=== PATIENT | female | born 1955 | race Two or more races ===

== ENCOUNTER 2023-09-14 17:45 | Inpatient (IN) | payer MEDICAID, OTHER ==
[~2023-09-14] VITALS: Ht 162.6 cm; Wt 52.9 kg
[2023-09-14] MEDS: SODIUM CHLORIDE 0.9% 1,000 ML IV ONE (19:33)
[2023-09-14] MEDS: MORPHINE SULFATE 4 MG/ML SYR/VIAL IV ONE (19:48)
[2023-09-14 19:58] LABS: Hematocrit 36.2 % (36.0-46.0); Hemoglobin 11.6 g/dL (12.2-16.2); Mean Corpuscular Hemoglobin 27.1 pg (28.0-32.0); Mean Corpuscular Hgb Conc. 32.1 g/dL (32.0-36.0); Mean Corpuscular Volume 84.5 fL (80.0-100.0); Red Blood Cells 4.28 10^6/uL (4.0-5.20); White Blood Cell 21.7 10^3/uL (4.4-10.8)
[2023-09-14 20:04] LABS: Basophils % (manual) 0 (0.0-2.0); Blast Cells 0; Eosinophils % (manual) 0 (0-7); Metamyelocytes % 0; Myelocytes % 0; Promyelocytes % 0; Reactive Lymphocytes 0
[2023-09-14] MEDS: AZITHROMYCIN 250 MG TAB PO ONE (20:43)
[2023-09-14] MEDS: cefTRIAXone 1GM/50ML D5W 50 ML IV ONE (20:44)
[2023-09-14] MEDS: MORPHINE SULFATE INJ 2 MG/ml SYRG IV ONE (20:47)
[2023-09-14 21:08] LABS: Chloride 103 mmol/L (98-107); Potassium 3.4 mmol/L (3.5-5.1); Sodium 135 mmol/L (136-145)
[2023-09-14 21:09] LABS: Anion Gap 8 (5-15); Calcium 8.5 mg/dL (8.5-10.1); Carbon Dioxide 24 mmol/L (20-30)
[2023-09-14 21:14] LABS: BUN/Creatinine Ratio 14.6 (10.0-20.0); Blood Urea Nitrogen 30 mg/dL (9-23); Glucose 165 mg/dL (74-106)
[2023-09-14 21:32] LABS: Band Neutrophils % (manual) 3; Lymphocytes % (manual) 5 (10.0-50.0); Monocytes % (manual) 6 (0-12); Platelet Estimate Adequate
[2023-09-14] MEDS ORDERED: NITROGLYCERIN 0.4 MG SL TAB SL PRN (22:00)
[2023-09-14] MEDS: SODIUM CHLORIDE 0.9% 1,000 ML IV SCH (22:39)
[2023-09-14 23:15] VITALS: PULSE 83; RESP 20; O2SAT 93
[2023-09-14 23:24] VITALS: O2SAT 93
[2023-09-14] MEDS: IPRATROPIUM BROM 0.5 MG/2.5ML INH SOL NEB SCH (23:24)
[2023-09-14] MEDS: ALBUTEROL SULF 2.5 MG/0.5ML(0.5%) NEB SOLN NEB SCH (23:24)
[2023-09-14 23:30] VITALS: PULSE 91; RESP 11; O2SAT 94
[2023-09-14 23:35] VITALS: PULSE 83; RESP 20; O2SAT 95
[2023-09-14 23:39] VITALS: PULSE 83; O2SAT 93
[2023-09-15] VITALS (24 sets, daily range): BP systolic 103–127; BP diastolic 54–63; PULSE 72–104; RESP 14–20; TEMP 97.4–98.8; O2SAT 90–98
[2023-09-15 00:30] LABS: COVID19 ANTIGEN SOFIA FIA NEGATIVE (NEGATIVE)
[2023-09-15 00:31] LABS: Rapid Influenza A Negative (Negative); Rapid Influenza B Negative (Negative)
[2023-09-15] MEDS ORDERED: THYR30TA PO (02:54)
[2023-09-15] MEDS: MORPHINE SULFATE INJ 2 MG/ml SYRG IV PRN ×2 (04:52→10:52)
[2023-09-15 05:50] LABS: Hematocrit 34.3 % (36.0-46.0); Hemoglobin 10.9 g/dL (12.2-16.2); Mean Corpuscular Hemoglobin 26.6 pg (28.0-32.0); Mean Corpuscular Hgb Conc. 31.8 g/dL (32.0-36.0); Mean Corpuscular Volume 83.7 fL (80.0-100.0); Red Cell Distribution Width 18.5 % (11.8-14.3); White Blood Cell 28.5 10^3/uL (4.4-10.8)
[2023-09-15 05:55] LABS: Basophils % (manual) 0 (0.0-2.0); Blast Cells 0; Eosinophils % (manual) 0 (0-7); Promyelocytes % 0; Reactive Lymphocytes 0
[2023-09-15 05:57] LABS: Chloride 102 mmol/L (98-107); Potassium 3.5 mmol/L (3.5-5.1); Sodium 134 mmol/L (136-145)
[2023-09-15 05:58] LABS: Anion Gap 7 (5-15); Calcium 8.1 mg/dL (8.7-10.4); Carbon Dioxide 25 mmol/L (20-30)
[2023-09-15 06:03] LABS: Glucose 138 mg/dL (74-106)
[2023-09-15 06:04] LABS: Blood Urea Nitrogen 29 mg/dL (9-23)
[2023-09-15 06:34] LABS: Band Neutrophils % (manual) 49; Lymphocytes % (manual) 2 (10.0-50.0); Metamyelocytes % 1; Monocytes % (manual) 3 (0-12); Myelocytes % 3; Platelet Estimate Adequate
[2023-09-15] MEDS: cefTRIAXone 1GM/50ML D5W 50 ML IV SCH (08:46)
[2023-09-15] MEDS: ENOXAPARIN SOD 30 MG/0.3 ML SYRINGE SC SCH (08:55)
[2023-09-15] MEDS: AZITHROMYCIN 500MG/ 250ML 250 ML IV SCH (08:56)
[2023-09-15] MEDS: guaiFENesin-DM 100/10mg/5ml SYR PO PRN (10:50)
[2023-09-15] MEDS: HYDROcodone-ACET 5/325MG TAB PO PRN (15:09)
[2023-09-15 17:50] LABS: Urine Bacteria FEW /hpf (None Seen); Urine Blood Negative /uL (Negative); Urine Clarity Clear (Clear); Urine Color Yellow (Yellow); Urine Hyaline Cast FEW /lpf (0 - 2); Urine Protein, UAD TRACE (Negative); Urine Urobilinogen Normal (Negative); Urine WBC <1 /hpf (0 - 5); Urine pH 5.5 (5.0-8.0)
[2023-09-16] VITALS (20 sets, daily range): BP systolic 113–154; BP diastolic 50–74; PULSE 60–83; RESP 14–22; TEMP 97.1–98.3; O2SAT 91–98
[2023-09-16 05:51] LABS: Hemoglobin 10.7 g/dL (12.2-16.2); Red Cell Distribution Width 18.4 % (11.8-14.3)
[2023-09-16 05:55] LABS: Hematocrit 33.9 % (36.0-46.0); Mean Corpuscular Hemoglobin 26.3 pg (28.0-32.0); Mean Corpuscular Hgb Conc. 31.6 g/dL (32.0-36.0); Mean Corpuscular Volume 83.1 fL (80.0-100.0); Red Blood Cells 4.08 10^6/uL (4.0-5.20)
[2023-09-16 06:07] LABS: Anion Gap 6 (5-15); Carbon Dioxide 25 mmol/L (20-30); Chloride 103 mmol/L (98-107); Potassium 3.3 mmol/L (3.5-5.1); Sodium 134 mmol/L (136-145)
[2023-09-16 06:08] LABS: Calcium 8.7 mg/dL (8.7-10.4)
[2023-09-16 06:13] LABS: BUN/Creatinine Ratio 21.5 (10.0-20.0); Blood Urea Nitrogen 28 mg/dL (9-23); Glucose 126 mg/dL (74-106)
[2023-09-16 06:15] LABS: White Blood Cell 36.5 10^3/uL (4.4-10.8)
[2023-09-16 06:17] LABS: Basophils % (manual) 0 (0.0-2.0); Blast Cells 0; Myelocytes % 0; Promyelocytes % 0; Reactive Lymphocytes 0
[2023-09-16 08:56] LABS: Platelet Estimate Adequate
[2023-09-16 09:00] LABS: Band Neutrophils % (manual) 12; Eosinophils % (manual) 1 (0-7); Lymphocytes % (manual) 3 (10.0-50.0); Metamyelocytes % 1; Monocytes % (manual) 8 (0-12)
[2023-09-16] MEDS: DOCUSATE SOD 100 MG CAP PO PRN (10:18)
[2023-09-16] MEDS: POTASSIUM CHL 20MEQ/100ML 100 ML IV SCH ×2 (15:45→22:43)
[2023-09-17] VITALS (23 sets, daily range): BP systolic 108–184; BP diastolic 58–84; PULSE 58–86; RESP 14–24; TEMP 97.3–98.8; O2SAT 90–98
[2023-09-17 06:48] LABS: Mean Corpuscular Hgb Conc. 32.3 g/dL (32.0-36.0)
[2023-09-17 06:49] LABS: Hematocrit 34.8 % (36.0-46.0); Hemoglobin 11.3 g/dL (12.2-16.2); Mean Corpuscular Volume 83.7 fL (80.0-100.0); Red Blood Cells 4.16 10^6/uL (4.0-5.20); Red Cell Distribution Width 18.3 % (11.8-14.3)
[2023-09-17 06:52] LABS: Chloride 101 mmol/L (98-107); Potassium 3.6 mmol/L (3.5-5.1); Sodium 133 mmol/L (136-145)
[2023-09-17 06:53] LABS: Anion Gap 5 (5-15); Carbon Dioxide 27 mmol/L (20-30)
[2023-09-17 06:54] LABS: Calcium 8.6 mg/dL (8.5-10.1)
[2023-09-17 06:58] LABS: BUN/Creatinine Ratio 23.2 (10.0-20.0); Blood Urea Nitrogen 19 mg/dL (9-23); Glucose 115 mg/dL (74-106)
[2023-09-17 06:59] LABS: White Blood Cell 36.2 10^3/uL (4.4-10.8)
[2023-09-17 07:01] LABS: Band Neutrophils % (manual) 0; Basophils % (manual) 0 (0.0-2.0); Blast Cells 0; Promyelocytes % 0; Reactive Lymphocytes 0
[2023-09-17 08:22] LABS: Eosinophils % (manual) 2 (0-7); Lymphocytes % (manual) 4 (10.0-50.0); Metamyelocytes % 1; Monocytes % (manual) 4 (0-12); Myelocytes % 1
[2023-09-17 08:23] LABS: Platelet Estimate Increased
[2023-09-17] MEDS: cefTRIAXone 1GM/50ML D5W 50 ML IV ONE (13:00)
[2023-09-17] MEDS: SODIUM CHLORIDE 0.9% 1,000 ML IV SCH (14:30)
[2023-09-18] VITALS (25 sets, daily range): BP systolic 126–162; BP diastolic 62–76; PULSE 65–94; RESP 16–24; TEMP 97.3–98.3; O2SAT 90–99
[2023-09-18 05:36] LABS: Hematocrit 32.7 % (36.0-46.0); Hemoglobin 10.7 g/dL (12.2-16.2); Mean Corpuscular Hemoglobin 27.3 pg (28.0-32.0); Mean Corpuscular Hgb Conc. 32.8 g/dL (32.0-36.0); Mean Corpuscular Volume 83.3 fL (80.0-100.0); Red Blood Cells 3.92 10^6/uL (4.0-5.20); Red Cell Distribution Width 18.4 % (11.8-14.3)
[2023-09-18 05:39] LABS: White Blood Cell 37.2 10^3/uL (4.4-10.8)
[2023-09-18 05:41] LABS: Basophils % (manual) 0 (0.0-2.0); Blast Cells 0; Eosinophils % (manual) 0 (0-7); Reactive Lymphocytes 0
[2023-09-18 05:44] LABS: Anion Gap 4 (5-15); Carbon Dioxide 28 mmol/L (20-30); Chloride 99 mmol/L (98-107); Potassium 3.5 mmol/L (3.5-5.1); Sodium 131 mmol/L (136-145)
[2023-09-18 05:45] LABS: Calcium 8.3 mg/dL (8.7-10.4)
[2023-09-18 05:50] LABS: BUN/Creatinine Ratio 15.1 (10.0-20.0); Blood Urea Nitrogen 11 mg/dL (9-23); Glucose 124 mg/dL (74-106)
[2023-09-18 08:15] LABS: Band Neutrophils % (manual) 17; Lymphocytes % (manual) 7 (10.0-50.0); Metamyelocytes % 1; Monocytes % (manual) 5 (0-12); Myelocytes % 1; Promyelocytes % 1
[2023-09-18 08:16] LABS: Platelet Estimate Increased
[2023-09-18] MEDS: cefTRIAXone 2GM/50ML D5W 50 ML IV SCH (10:13)
[2023-09-18] MEDS: ACETYLCYSTEINE 20%(200MG/ML) SOL 4ML NEB SCH (13:25)
[2023-09-18] MEDS: FLUCONAZOLE 100 MG TAB PO SCH (21:47)
[2023-09-18] MEDS ORDERED: PROP60CA34 PO (22:16)
[2023-09-18] MEDS: PROPRANOLOL HCL 20 MG TAB PO SCH (23:14)
[2023-09-19] VITALS (21 sets, daily range): BP systolic 131–154; BP diastolic 56–75; PULSE 55–88; RESP 16–24; TEMP 97.4–98.3; O2SAT 91–99
[2023-09-19 06:24] LABS: Hemoglobin 10.3 g/dL (12.2-16.2)
[2023-09-19 06:27] LABS: Hematocrit 31.5 % (36.0-46.0); Mean Corpuscular Hemoglobin 27.1 pg (28.0-32.0); Mean Corpuscular Hgb Conc. 32.7 g/dL (32.0-36.0); Mean Corpuscular Volume 82.9 fL (80.0-100.0); Red Cell Distribution Width 18.1 % (11.8-14.3)
[2023-09-19 06:28] LABS: Chloride 99 mmol/L (98-107); Potassium 3.5 mmol/L (3.5-5.1); Sodium 133 mmol/L (136-145)
[2023-09-19 06:29] LABS: Anion Gap 3 (5-15); Calcium 8.2 mg/dL (8.5-10.1); Carbon Dioxide 31 mmol/L (20-30)
[2023-09-19 06:34] LABS: BUN/Creatinine Ratio 12.3 (10.0-20.0); Blood Urea Nitrogen 8 mg/dL (9-23); Glucose 121 mg/dL (74-106)
[2023-09-19 06:44] LABS: White Blood Cell 35.7 10^3/uL (4.4-10.8)
[2023-09-19 06:45] LABS: Basophils % (manual) 0 (0.0-2.0); Blast Cells 0; Eosinophils % (manual) 0 (0-7); Metamyelocytes % 0; Myelocytes % 0; Promyelocytes % 0; Reactive Lymphocytes 0
[2023-09-19 07:49] LABS: Band Neutrophils % (manual) 6; Lymphocytes % (manual) 7 (10.0-50.0); Monocytes % (manual) 7 (0-12); Platelet Estimate Increased
[2023-09-19] MEDS: CATHFLO ACTIVASE (ALTEPLASE) 2 MG VIAL IV ONE ×3 (12:45→13:30)
[2023-09-19] MEDS: NAFCILLIN SOD 1GM 1 GM in SODIUM CHL 0.9% 50 ML IV ONE (16:00)
[2023-09-19 16:51] LABS: INR 1.62 (0.9-1.15); Partial Thromboplastin Time 33.6 SEC (24.5-34.5); Prothrombin Time 16.5 sec (9.3-11.8)
[2023-09-19 18:58] LABS: Body Fluid Polymorphonuclear 94 % (0-25); Body Fluid Red Blood Cells 1483 CUMM (0-2000); Body Fluid White Blood Cells 713 CUMM (0-200)
[2023-09-20] VITALS (61 sets, daily range): BP systolic 84–137; BP diastolic 46–75; PULSE 59–73; RESP 12–18; TEMP 97–98.2; O2SAT 91–100
[2023-09-20 05:59] LABS: Hematocrit 31.3 % (36.0-46.0); Hemoglobin 10.2 g/dL (12.2-16.2); Mean Corpuscular Hgb Conc. 32.6 g/dL (32.0-36.0); Mean Corpuscular Volume 82.6 fL (80.0-100.0); Red Blood Cells 3.79 10^6/uL (4.0-5.20); White Blood Cell 24.9 10^3/uL (4.4-10.8)
[2023-09-20 06:01] LABS: Chloride 97 mmol/L (98-107); Potassium 3.2 mmol/L (3.5-5.1); Sodium 133 mmol/L (136-145)
[2023-09-20 06:02] LABS: Anion Gap 4 (5-15); Calcium 8.2 mg/dL (8.7-10.4); Carbon Dioxide 32 mmol/L (20-30)
[2023-09-20 06:07] LABS: BUN/Creatinine Ratio 11.6 (10.0-20.0); Blood Urea Nitrogen 8 mg/dL (9-23); Glucose 125 mg/dL (74-106)
[2023-09-20 06:10] LABS: Basophils % (manual) 0 (0.0-2.0); Blast Cells 0; Eosinophils % (manual) 0 (0-7); Myelocytes % 0; Promyelocytes % 0; Reactive Lymphocytes 0
[2023-09-20] MEDS: SUCCINYLCHOLINE CHLORIDE 20 MG/ML 10ML VIAL IV ONE (06:38)
[2023-09-20] MEDS: ROCURONIUM 10MG/ML 10ML VIAL IV ONE (06:38)
[2023-09-20] MEDS ORDERED: MEPERIDINE HCL (25 MG/ML) 1ML VIAL ONE (06:42)
[2023-09-20] MEDS ORDERED: ONDANSETRON HCL 4 MG/2 ML VIAL ONE (06:42)
[2023-09-20] MEDS ORDERED: MIDAZOLAM HCL 2MG/2ML 2ml VIAL (1mg/ml) ONE ×3 (06:42→13:51)
[2023-09-20] MEDS ORDERED: LIDOCAINE 1% INJ PF 5ML AMP ONE (06:42)
[2023-09-20] MEDS ORDERED: SODIUM CHLORIDE LOCK 50 ML ONE (06:42)
[2023-09-20] MEDS ORDERED: NEOSTIGMINE 1 MG/ML INJ (10mg/10ML VIAL) ONE (06:42)
[2023-09-20] MEDS ORDERED: DexAMETHasone SOD PHOS 10MG/1ML VIAL INJ ONE (06:42)
[2023-09-20] MEDS ORDERED: fentaNYL CITRATE 5 ML ONE (06:42)
[2023-09-20] MEDS ORDERED: KETAMINE 50mg/ML 1ml syringe ONE (06:43)
[2023-09-20] MEDS ORDERED: ETOMIDATE (2MG/ML) 20ML VIAL IV ONE (06:43)
[2023-09-20] MEDS ORDERED: GLYCOPYRROLATE 0.2 MG/ML 1ML VIAL ONE ×2 (06:43→13:34)
[2023-09-20] MEDS: METOCLOPRAMIDE HCL 5MG/ml INJ 2ml VIAL IV ONE (07:15)
[2023-09-20] MEDS ORDERED: MORPHINE SULFATE INJ 2 MG/ml SYRG IV PRN (07:15)
[2023-09-20] MEDS ORDERED: HYDROmorphone HCL 2 MG/ML VL/or syr IV PRN ×2 (07:15)
[2023-09-20 07:34] LABS: Band Neutrophils % (manual) 8; Lymphocytes % (manual) 13 (10.0-50.0); Metamyelocytes % 7; Monocytes % (manual) 14 (0-12); Platelet Estimate Increased
[2023-09-20] MEDS: levoFLOXacin 500MG 100 ML IV ONE (07:38)
[2023-09-20 08:07] LABS: INR 1.3 (0.9-1.15); Prothrombin Time 13.4 sec (9.3-11.8)
[2023-09-20] MEDS ORDERED: HYDROmorphone HCL 2 MG/ML VL/or syr ONE (08:58)
[2023-09-20] MEDS ORDERED: ROCURONIUM 10MG/ML 10ML VIAL IV ONE (08:58)
[2023-09-20] MEDS: LIDOCAINE W/ EPINEPHRINE 1% 20ML VIAL ONE (09:36)
[2023-09-20] MEDS: BUPIVACAINE 0.25% INJ 50ML VIAL ONE (09:36)
[2023-09-20] MEDS: IPRATROPIUM BROM 0.5 MG/2.5ML INH SOL NEB SCH (10:00)
[2023-09-20] MEDS: MIDAZOLAM DRIP 50 mg/50mL 50 ML IV SCH (11:00)
[2023-09-20] MEDS ORDERED: ALBUTEROL SULF 2.5 MG/0.5ML(0.5%) NEB SOLN NEB SCH (12:00)
[2023-09-20 12:11] LABS: Base Excess 2.3 mmol/L (-2.0-2.0)
[2023-09-20] MEDS: POTASSIUM CHL 20MEQ/100ML 100 ML IV SCH (12:50)
[2023-09-20] MEDS: D5W/SOD CHLO 0.9% 1,000 ML IV SCH (12:52)
[2023-09-20] MEDS ORDERED: EPINEPHrine HCL 1 MG/1 ML AMP ONE (13:34)
[2023-09-20] MEDS ORDERED: LIDOCAINE 2%HCL (LOCAL ANESTH.) INJ 20ML MDV ONE (13:34)
[2023-09-20] MEDS: LIDOCAINE 2% JELLY 11ml (GLYDO) ONE (13:37)
[2023-09-20] MEDS: NOREPINEPHRINE 8 MG/250ML KIT 250 ML IV SCH (16:00)
[2023-09-20] MEDS: fentaNYL Drip 2500mCg/250mlNS 250 ML IV SCH (17:29)
[2023-09-20] MEDS: fentaNYL CITRATE 100 MCG/2 ML VL IV ONE (20:15)
[2023-09-20] MEDS: MIDAZOLAM HCL 2MG/2ML 2ml VIAL (1mg/ml) IV ONE (20:25)
[2023-09-20] MEDS: metroNIDAZOLE 500MG/100ML 100 ML IV SCH (22:04)
[2023-09-21] VITALS (109 sets, daily range): BP systolic 89–119; BP diastolic 41–62; PULSE 57–98; RESP 12–17; TEMP 97–98.4; O2SAT 94–100
[2023-09-21 03:42] LABS: Hematocrit 28.4 % (36.0-46.0); Hemoglobin 9.1 g/dL (12.2-16.2); Mean Corpuscular Hemoglobin 26.3 pg (28.0-32.0)
[2023-09-21 03:43] LABS: Mean Corpuscular Volume 82.3 fL (80.0-100.0); Red Blood Cells 3.45 10^6/uL (4.0-5.20); Red Cell Distribution Width 17.6 % (11.8-14.3); White Blood Cell 15.5 10^3/uL (4.4-10.8)
[2023-09-21 03:54] LABS: Basophils % (manual) 0 (0.0-2.0); Blast Cells 0; Eosinophils % (manual) 0 (0-7); Metamyelocytes % 0; Myelocytes % 0; Promyelocytes % 0; Reactive Lymphocytes 0
[2023-09-21 04:05] LABS: Alanine Aminotransferase 44 U/L (7-40); Alkaline Phosphatase 102 U/L (46-116); Anion Gap 0 (5-15); BUN/Creatinine Ratio 12.9 (10.0-20.0); Blood Urea Nitrogen 9 mg/dL (9-23); Calcium 7.9 mg/dL (8.7-10.4); Carbon Dioxide 33 mmol/L (20-30); Chloride 101 mmol/L (98-107); Glucose 185 mg/dL (74-106); Potassium 4.5 mmol/L (3.5-5.1); Sodium 134 mmol/L (136-145)
[2023-09-21 04:06] LABS: Albumin 2.2 g/dL (3.2-4.8)
[2023-09-21 04:07] LABS: Aspartate Aminotransferase 33 U/L (13-40); Bilirubin, Total 0.4 mg/dL (0.2-1.0); Total Protein 5.3 g/dL (5.7-8.2)
[2023-09-21 07:44] LABS: Band Neutrophils % (manual) 14; Lymphocytes % (manual) 4 (10.0-50.0); Monocytes % (manual) 5 (0-12); Platelet Estimate Increased
[2023-09-21] MEDS: PANTOPRAZOLE 40 MG/10 ML VIAL INJ IV SCH (10:06)
[2023-09-21 13:07] LABS: Protein, Body Fluid 3.5 g/dL (.)
[2023-09-22] VITALS (108 sets, daily range): BP systolic 96–135; BP diastolic 45–75; PULSE 60–94; RESP 16–23; TEMP 97.9–98.8; O2SAT 94–100
[2023-09-22 04:12] LABS: Basophils # (auto) 0 10 ^3/uL (0-0.2); Basophils % (auto) 0.1 % (0.0-2.0); Eosinophils # (auto) 0 10 ^3/uL (0-0.8); Hematocrit 24.2 % (36.0-46.0); Lymphocytes # (auto) 1.1 10 ^3/uL (0.4-5.4); Lymphocytes % (auto) 11.6 % (10.0-50.0); Mean Corpuscular Hemoglobin 27.2 pg (28.0-32.0); Mean Corpuscular Volume 82.2 fL (80.0-100.0); Monocytes # (auto) 0.7 10 ^3/uL (0-1.3); Monocytes % (auto) 7.8 % (0.0-12.0); Neutrophils # (auto) 7.6 10 ^3/uL (1.6-8.6); Neutrophils % (auto) 80.5 % (37.0-80.0); Nucleated Red Blood Cells % 0.1 %; Red Blood Cells 2.95 10^6/uL (4.0-5.20); Red Cell Distribution Width 17.7 % (11.8-14.3); White Blood Cell 9.4 10^3/uL (4.4-10.8)
[2023-09-22 04:33] LABS: Alanine Aminotransferase 36 U/L (7-40); Albumin 2.1 g/dL (3.2-4.8); Alkaline Phosphatase 85 U/L (46-116); Anion Gap 1 (5-15); Aspartate Aminotransferase 37 U/L (13-40); BUN/Creatinine Ratio 10.8 (10.0-20.0); Blood Urea Nitrogen 9 mg/dL (9-23); Calcium 7.9 mg/dL (8.7-10.4); Carbon Dioxide 32 mmol/L (20-30); Chloride 106 mmol/L (98-107); Glucose 130 mg/dL (74-106); Potassium 4.2 mmol/L (3.5-5.1); Sodium 139 mmol/L (136-145)
[2023-09-22 04:34] LABS: Bilirubin, Total 0.3 mg/dL (0.2-1.0); Total Protein 4.9 g/dL (5.7-8.2)
[2023-09-22 06:50] LABS: Base Excess 5.5 mmol/L (-2.0-2.0)
[2023-09-23] VITALS (114 sets, daily range): BP systolic 89–143; BP diastolic 32–84; PULSE 70–104; RESP 14–36; TEMP 97.9–100.2; O2SAT 91–100
[2023-09-23 04:04] LABS: Basophils # (auto) 0 10 ^3/uL (0-0.2); Eosinophils # (auto) 0.1 10 ^3/uL (0-0.8); Hemoglobin 8.2 g/dL (12.2-16.2); Lymphocytes # (auto) 1.4 10 ^3/uL (0.4-5.4); Monocytes # (auto) 0.8 10 ^3/uL (0-1.3)
[2023-09-23 04:07] LABS: Basophils % (auto) 0.1 % (0.0-2.0); Eosinophils % (auto) 0.6 % (0.0-7.0); Hematocrit 24.8 % (36.0-46.0); Lymphocytes % (auto) 15.2 % (10.0-50.0); Mean Corpuscular Hemoglobin 27.5 pg (28.0-32.0); Mean Corpuscular Volume 83.4 fL (80.0-100.0); Monocytes % (auto) 8.3 % (0.0-12.0); Neutrophils % (auto) 75.8 % (37.0-80.0); Red Blood Cells 2.98 10^6/uL (4.0-5.20); Red Cell Distribution Width 17.5 % (11.8-14.3); White Blood Cell 9.2 10^3/uL (4.4-10.8)
[2023-09-23 04:26] LABS: Alanine Aminotransferase 33 U/L (7-40); Albumin 2.1 g/dL (3.2-4.8); Alkaline Phosphatase 100 U/L (46-116); Anion Gap 2 (5-15); Aspartate Aminotransferase 36 U/L (13-40); Blood Urea Nitrogen 9 mg/dL (9-23); Calcium 7.9 mg/dL (8.7-10.4); Carbon Dioxide 33 mmol/L (20-30); Chloride 106 mmol/L (98-107); Glucose 110 mg/dL (74-106); Potassium 3.7 mmol/L (3.5-5.1); Sodium 141 mmol/L (136-145)
[2023-09-23 04:27] LABS: Bilirubin, Total 0.4 mg/dL (0.2-1.0); Total Protein 4.9 g/dL (5.7-8.2)
[2023-09-23 07:12] LABS: Base Excess 6.6 mmol/L (-2.0-2.0)
[2023-09-23] MEDS: ACETAMINOPHEN 325 MG TAB PO PRN (10:42)
[2023-09-23 11:01] LABS: Base Excess 5.7 mmol/L (-2.0-2.0)
[2023-09-23] MEDS: IRON SUCROSE COMPLEX 100 ML IV SCH (11:27)
[2023-09-23] MEDS: methylPREDNISolone SOD SUCC 125 MG/2 ML VL IV SCH (15:16)
[2023-09-23] MEDS: Vital AF 1.2 Cal 1 liter bottle GT SCH (17:35)
[2023-09-23] MEDS: methylPREDNISolone SOD SUCC 125 MG/2 ML VL ONE (22:00)
[2023-09-24] VITALS (110 sets, daily range): BP systolic 85–165; BP diastolic 41–86; PULSE 61–108; RESP 11–22; TEMP 97.2–98.2; O2SAT 88–100
[2023-09-24 02:18] LABS: Basophils # (auto) 0 10 ^3/uL (0-0.2); Eosinophils # (auto) 0 10 ^3/uL (0-0.8); Lymphocytes # (auto) 0.4 10 ^3/uL (0.4-5.4); Monocytes # (auto) 0.3 10 ^3/uL (0-1.3); Neutrophils % (auto) 94.3 % (37.0-80.0)
[2023-09-24 02:19] LABS: Basophils % (auto) 0.1 % (0.0-2.0); Hematocrit 25.1 % (36.0-46.0); Hemoglobin 8.3 g/dL (12.2-16.2); Lymphocytes % (auto) 3.1 % (10.0-50.0); Mean Corpuscular Hemoglobin 27.4 pg (28.0-32.0); Mean Corpuscular Volume 83.1 fL (80.0-100.0); Monocytes % (auto) 2.5 % (0.0-12.0); Neutrophils # (auto) 12.6 10 ^3/uL (1.6-8.6); Red Blood Cells 3.02 10^6/uL (4.0-5.20); Red Cell Distribution Width 17.4 % (11.8-14.3); White Blood Cell 13.3 10^3/uL (4.4-10.8)
[2023-09-24 02:37] LABS: Alanine Aminotransferase 32 U/L (7-40); Albumin 2.2 g/dL (3.2-4.8); Alkaline Phosphatase 133 U/L (46-116); Anion Gap 1 (5-15); Aspartate Aminotransferase 34 U/L (13-40); Bilirubin, Total 0.3 mg/dL (0.2-1.0); Blood Urea Nitrogen 9 mg/dL (9-23); Calcium 7.9 mg/dL (8.7-10.4); Carbon Dioxide 32 mmol/L (20-30); Chloride 104 mmol/L (98-107); Glucose 216 mg/dL (74-106); Potassium 3.8 mmol/L (3.5-5.1); Sodium 137 mmol/L (136-145); Total Protein 5.1 g/dL (5.7-8.2)
[2023-09-24 07:30] LABS: Base Excess 4.3 mmol/L (-2.0-2.0)
[2023-09-24] MEDS: methylPREDNISolone SOD SUCC 125 MG/2 ML VL ONE ×2 (08:00→09:51)
[2023-09-24] MEDS: NOREPINEPHRINE 8 MG/250ML KIT 250 ML IV SCH (20:15)
[2023-09-25] VITALS (107 sets, daily range): BP systolic 87–148; BP diastolic 42–80; PULSE 46–87; RESP 16–20; TEMP 97–98.6; O2SAT 86–98
[2023-09-25 07:12] LABS: Base Excess 4.6 mmol/L (-2.0-2.0)
[2023-09-25 09:30] LABS: Anion Gap 3 (5-15); Carbon Dioxide 30 mmol/L (20-30); Chloride 108 mmol/L (98-107); Sodium 141 mmol/L (136-145)
[2023-09-25 09:31] LABS: Calcium 7.8 mg/dL (8.5-10.1)
[2023-09-25 09:32] LABS: Basophils # (auto) 0 10 ^3/uL (0-0.2); Basophils % (auto) 0.1 % (0.0-2.0); Eosinophils # (auto) 0 10 ^3/uL (0-0.8); Hemoglobin 7.9 g/dL (12.2-16.2); Lymphocytes # (auto) 0.5 10 ^3/uL (0.4-5.4); Mean Corpuscular Hgb Conc. 32.6 g/dL (32.0-36.0); Monocytes # (auto) 0.5 10 ^3/uL (0-1.3)
[2023-09-25 09:34] LABS: Hematocrit 24.2 % (36.0-46.0); Lymphocytes % (auto) 5.1 % (10.0-50.0); Mean Corpuscular Hemoglobin 27.4 pg (28.0-32.0); Neutrophils # (auto) 9.6 10 ^3/uL (1.6-8.6); Neutrophils % (auto) 89.8 % (37.0-80.0); Red Blood Cells 2.88 10^6/uL (4.0-5.20); Red Cell Distribution Width 16.9 % (11.8-14.3); White Blood Cell 10.7 10^3/uL (4.4-10.8)
[2023-09-25 09:36] LABS: BUN/Creatinine Ratio 19.7 (10.0-20.0); Blood Urea Nitrogen 14 mg/dL (9-23); Glucose 156 mg/dL (74-106)
[2023-09-25] MEDS: Vital AF 1.2 Cal 1 liter bottle GT SCH (13:52)
[2023-09-25] MEDS: FUROSEMIDE 20 MG/2 ML VIAL IV ONE (14:20)
[2023-09-25] MEDS: THYROID 60 MG TAB PO ONE (16:10)
[2023-09-26] VITALS (106 sets, daily range): BP systolic 93–152; BP diastolic 45–74; PULSE 56–120; RESP 15–18; TEMP 97.5–98.6; O2SAT 94–100
[2023-09-26 03:47] LABS: Basophils # (auto) 0 10 ^3/uL (0-0.2); Eosinophils # (auto) 0 10 ^3/uL (0-0.8); Hematocrit 23.6 % (36.0-46.0); Hemoglobin 7.7 g/dL (12.2-16.2); Lymphocytes # (auto) 0.4 10 ^3/uL (0.4-5.4); Lymphocytes % (auto) 4.8 % (10.0-50.0); Mean Corpuscular Hemoglobin 27.2 pg (28.0-32.0); Mean Corpuscular Hgb Conc. 32.4 g/dL (32.0-36.0); Mean Corpuscular Volume 84.1 fL (80.0-100.0); Monocytes # (auto) 0.4 10 ^3/uL (0-1.3); Monocytes % (auto) 4.5 % (0.0-12.0); Neutrophils # (auto) 7.9 10 ^3/uL (1.6-8.6); Neutrophils % (auto) 90.7 % (37.0-80.0); Red Blood Cells 2.81 10^6/uL (4.0-5.20); Red Cell Distribution Width 17.2 % (11.8-14.3); White Blood Cell 8.7 10^3/uL (4.4-10.8)
[2023-09-26 04:03] LABS: Anion Gap 6 (5-15); Carbon Dioxide 28 mmol/L (20-30); Chloride 109 mmol/L (98-107); Potassium 3.8 mmol/L (3.5-5.1); Sodium 143 mmol/L (136-145)
[2023-09-26 04:04] LABS: Calcium 8.2 mg/dL (8.7-10.4)
[2023-09-26 04:08] LABS: Glucose 168 mg/dL (74-106)
[2023-09-26 04:09] LABS: BUN/Creatinine Ratio 29.2 (10.0-20.0); Blood Urea Nitrogen 21 mg/dL (9-23)
[2023-09-26] MEDS: THYROID 60 MG TAB PO SCH (06:32)
[2023-09-26 07:04] LABS: Base Excess 1.5 mmol/L (-2.0-2.0)
[2023-09-26] MEDS: ROCURONIUM 10MG/ML 10ML VIAL IV ONE (11:41)
[2023-09-26] MEDS ORDERED: TPN PER PHARMACY 0 ML IV SCH (14:15)
[2023-09-26] MEDS: ALBUMIN 25% 100 ML IV ONE (16:29)
[2023-09-26] MEDS ORDERED: DEXTROSE (50%) 50ML SYRG IV SCH (20:00)
[2023-09-26] MEDS: AMINO ACID INFUSION IN D10W 1,000 ML IV SCH (20:03)
[2023-09-26] MEDS: methylPREDNISolone SOD SUCC 40 MG/ML VL IV SCH (21:43)
[2023-09-26] MEDS: ACCU-CHEK COMFORT CURVE STRIP VI SCH (23:54)
[2023-09-26] MEDS: InsuLIN REG 1unit/0.01ml Soln (100units/ml) SC SCH (23:55)
[2023-09-27] VITALS (104 sets, daily range): BP systolic 120–176; BP diastolic 23–102; PULSE 38–116; RESP 9–24; TEMP 96.8–99; O2SAT 92–100
[2023-09-27 04:17] LABS: Alanine Aminotransferase 31 U/L (7-40); Albumin 2.7 g/dL (3.2-4.8); Alkaline Phosphatase 101 U/L (46-116); Anion Gap 5 (5-15); Aspartate Aminotransferase 33 U/L (13-40); BUN/Creatinine Ratio 34.3 (10.0-20.0); Blood Urea Nitrogen 23 mg/dL (9-23); Calcium 8.6 mg/dL (8.7-10.4); Carbon Dioxide 27 mmol/L (20-30); Chloride 111 mmol/L (98-107); Glucose 186 mg/dL (74-106); Potassium 3.7 mmol/L (3.5-5.1); Sodium 143 mmol/L (136-145)
[2023-09-27 04:18] LABS: Bilirubin, Total 0.2 mg/dL (0.2-1.0); Phosphorus 2.5 mg/dL (2.4-5.1); Total Protein 5.3 g/dL (5.7-8.2)
[2023-09-27 04:32] LABS: Triglycerides 106 mg/dL (< 150)
[2023-09-27 07:52] LABS: Base Excess 1.4 mmol/L (-2.0-2.0)
[2023-09-27] MEDS: ENOXAPARIN SOD 30 MG/0.3 ML SYRINGE SC SCH (09:22)
[2023-09-27 10:28] LABS: Base Excess 1.4 mmol/L (-2.0-2.0)
[2023-09-27] MEDS: FUROSEMIDE 20 MG/2 ML VIAL IV ONE (12:07)
[2023-09-27] MEDS: MORPHINE SULFATE 4 MG/ML SYR/VIAL IV PRN (12:08)
[2023-09-27] MEDS: D5W/SOD CHL 0.45% 1,000 ML IV SCH (13:58)
[2023-09-27] MEDS: ONDANSETRON HCL 4 MG/2 ML VIAL IV PRN (16:14)
[2023-09-27] MEDS: TPN PER PHARMACY IV NR (20:00)
[2023-09-27] MEDS ORDERED: hydrALAZINE HCL 20 MG/ML VL IV PRN (23:15)
[2023-09-27] MEDS ORDERED: ATROPINE SULF 1 MG/10ml SYR IV PRN (23:30)
[2023-09-27 23:46] LABS: Chloride 103 mmol/L (98-107); Potassium 3.4 mmol/L (3.5-5.1); Sodium 137 mmol/L (136-145)
[2023-09-27 23:48] LABS: Anion Gap 4 (5-15); Calcium 8.3 mg/dL (8.7-10.4); Carbon Dioxide 30 mmol/L (20-30)
[2023-09-27 23:53] LABS: Blood Urea Nitrogen 23 mg/dL (9-23); Glucose 146 mg/dL (74-106); Magnesium 1.6 mg/dL (1.6-2.6)
[2023-09-28] VITALS (50 sets, daily range): BP systolic 127–161; BP diastolic 53–77; PULSE 33–88; RESP 7–32; TEMP 98–99.7; O2SAT 90–99
[2023-09-28] MEDS: POTASSIUM CHL 20MEQ/100ML 100 ML IV ONE ×2 (00:33→00:34)
[2023-09-28] MEDS: MAGNESIUM SULFATE 1GM/100ML 100 ML IV SCH (01:01)
[2023-09-28 04:41] LABS: Alanine Aminotransferase 33 U/L (7-40); Albumin 2.7 g/dL (3.2-4.8); Alkaline Phosphatase 95 U/L (46-116); Anion Gap 7 (5-15); Aspartate Aminotransferase 34 U/L (13-40); BUN/Creatinine Ratio 32.2 (10.0-20.0); Bilirubin, Total 0.2 mg/dL (0.2-1.0); Blood Urea Nitrogen 19 mg/dL (9-23); Calcium 8.2 mg/dL (8.5-10.1); Carbon Dioxide 29 mmol/L (20-30); Chloride 101 mmol/L (98-107); Glucose 159 mg/dL (74-106); Potassium 3.6 mmol/L (3.5-5.1); Sodium 137 mmol/L (136-145); Total Protein 5.2 g/dL (5.7-8.2); Triglycerides 102 mg/dL (< 150)
[2023-09-28] MEDS: LORazepam 2MG/ML-1ML VIAL IV PRN (04:51)
[2023-09-28 05:10] LABS: Magnesium 2.2 mg/dL (1.6-2.6)
[2023-09-28 10:23] LABS: Basophils # (auto) 0 10 ^3/uL (0-0.2); Basophils % (auto) 0.2 % (0.0-2.0); Eosinophils # (auto) 0 10 ^3/uL (0-0.8); Neutrophils % (auto) 86.3 % (37.0-80.0)
[2023-09-28 10:26] LABS: Hematocrit 25.8 % (36.0-46.0); Hemoglobin 8.2 g/dL (12.2-16.2); Lymphocytes # (auto) 0.6 10 ^3/uL (0.4-5.4); Lymphocytes % (auto) 4.9 % (10.0-50.0); Mean Corpuscular Hgb Conc. 31.9 g/dL (32.0-36.0); Mean Corpuscular Volume 84.5 fL (80.0-100.0); Monocytes # (auto) 1.1 10 ^3/uL (0-1.3); Monocytes % (auto) 8.6 % (0.0-12.0); Neutrophils # (auto) 10.9 10 ^3/uL (1.6-8.6); Nucleated Red Blood Cells % 0.1 %; Red Blood Cells 3.05 10^6/uL (4.0-5.20); Red Cell Distribution Width 17.4 % (11.8-14.3); White Blood Cell 12.7 10^3/uL (4.4-10.8)
[2023-09-28] MEDS: D5W/SOD CHL 0.45% 1,000 ML IV SCH (12:45)
[2023-09-28] MEDS: POTASSIUM PHOSPHATE 22 MEQ in SODIUM CHL 0.9% 100 ML IV SCH (13:58)
[2023-09-28] MEDS: METOCLOPRAMIDE HCL 5MG/ml INJ 2ml VIAL IV SCH (17:29)
[2023-09-28] MEDS: methylPREDNISolone SOD SUCC 40 MG/ML VL IV SCH (17:31)
[2023-09-28] MEDS: TPN PER PHARMACY IV NR (20:10)
[2023-09-29] VITALS (29 sets, daily range): BP systolic 128–150; BP diastolic 65–79; PULSE 66–97; RESP 11–23; TEMP 97.7–99.2; O2SAT 91–100
[2023-09-29 05:18] LABS: Basophils # (auto) 0 10 ^3/uL (0-0.2); Eosinophils # (auto) 0 10 ^3/uL (0-0.8); Hematocrit 26.7 % (36.0-46.0); Hemoglobin 8.9 g/dL (12.2-16.2); Monocytes # (auto) 1.4 10 ^3/uL (0-1.3); Monocytes % (auto) 11.4 % (0.0-12.0); Red Blood Cells 3.16 10^6/uL (4.0-5.20)
[2023-09-29 05:21] LABS: Basophils % (auto) 0.4 % (0.0-2.0); Eosinophils % (auto) 0.2 % (0.0-7.0); Lymphocytes # (auto) 1.5 10 ^3/uL (0.4-5.4); Lymphocytes % (auto) 12.8 % (10.0-50.0); Mean Corpuscular Hgb Conc. 33.1 g/dL (32.0-36.0); Mean Corpuscular Volume 84.6 fL (80.0-100.0); Neutrophils % (auto) 75.2 % (37.0-80.0); Red Cell Distribution Width 17.6 % (11.8-14.3)
[2023-09-29 05:39] LABS: Alanine Aminotransferase 30 U/L (7-40); Alkaline Phosphatase 93 U/L (46-116); Anion Gap 2 (5-15); BUN/Creatinine Ratio 25.5 (10.0-20.0); Blood Urea Nitrogen 14 mg/dL (9-23); Calcium 8.1 mg/dL (8.7-10.4); Carbon Dioxide 30 mmol/L (20-30); Chloride 101 mmol/L (98-107); Glucose 129 mg/dL (74-106); Magnesium 2.1 mg/dL (1.6-2.6); Potassium 3.7 mmol/L (3.5-5.1); Sodium 133 mmol/L (136-145)
[2023-09-29 05:40] LABS: Albumin 2.5 g/dL (3.2-4.8); Aspartate Aminotransferase 25 U/L (13-40); Bilirubin, Total 0.3 mg/dL (0.2-1.0); Phosphorus 2.6 mg/dL (2.4-5.1); Total Protein 5.1 g/dL (5.7-8.2)
[2023-09-29 15:58] LABS: INR 1.15 (0.9-1.15)
[2023-09-29] MEDS: TPN PER PHARMACY IV NR (19:57)
[2023-09-30] VITALS (78 sets, daily range): BP systolic 101–154; BP diastolic 47–82; PULSE 38–105; RESP 12–34; TEMP 97.5–98.4; O2SAT 93–100
[2023-09-30 05:42] LABS: Basophils # (auto) 0 10 ^3/uL (0-0.2); Eosinophils # (auto) 0 10 ^3/uL (0-0.8); Hemoglobin 8.9 g/dL (12.2-16.2); Neutrophils # (auto) 9.1 10 ^3/uL (1.6-8.6); White Blood Cell 11.3 10^3/uL (4.4-10.8)
[2023-09-30 05:45] LABS: Basophils % (auto) 0.1 % (0.0-2.0); Eosinophils % (auto) 0.2 % (0.0-7.0); Hematocrit 27.8 % (36.0-46.0); Lymphocytes # (auto) 1.2 10 ^3/uL (0.4-5.4); Lymphocytes % (auto) 10.3 % (10.0-50.0); Mean Corpuscular Hemoglobin 27.4 pg (28.0-32.0); Mean Corpuscular Hgb Conc. 32.1 g/dL (32.0-36.0); Mean Corpuscular Volume 85.2 fL (80.0-100.0); Monocytes % (auto) 9.2 % (0.0-12.0); Neutrophils % (auto) 80.2 % (37.0-80.0); Red Blood Cells 3.26 10^6/uL (4.0-5.20); Red Cell Distribution Width 17.4 % (11.8-14.3)
[2023-09-30 05:50] LABS: Alanine Aminotransferase 28 U/L (7-40); Albumin 2.7 g/dL (3.2-4.8); Alkaline Phosphatase 90 U/L (46-116); Anion Gap 8 (5-15); Aspartate Aminotransferase 25 U/L (13-40); BUN/Creatinine Ratio 32.1 (10.0-20.0); Blood Urea Nitrogen 17 mg/dL (9-23); Calcium 8.2 mg/dL (8.7-10.4); Carbon Dioxide 27 mmol/L (20-30); Chloride 100 mmol/L (98-107); Glucose 121 mg/dL (74-106); Potassium 3.8 mmol/L (3.5-5.1); Sodium 135 mmol/L (136-145)
[2023-09-30 05:51] LABS: Bilirubin, Total 0.3 mg/dL (0.2-1.0); Total Protein 5.3 g/dL (5.7-8.2)
[2023-09-30 07:25] LABS: Phosphorus 2.8 mg/dL (2.4-5.1)
[2023-09-30] MEDS ORDERED: LIDOCAINE 1% (LOCAL ANESTH.) PF 5ml SDV ID ONE (15:00)
[2023-09-30] MEDS: TPN PER PHARMACY IV NR (20:16)
[2023-09-30] MEDS ORDERED: SODIUM CHLOR 0.9% PF (SALINE LOCK) 10ML VIAL/SYR IV SCH (22:00)
[2023-10-01] VITALS (31 sets, daily range): BP systolic 125–155; BP diastolic 52–84; PULSE 71–107; RESP 11–23; TEMP 97.9–98.6; O2SAT 94–100
[2023-10-01 05:06] LABS: Alanine Aminotransferase 27 U/L (7-40); Albumin 2.8 g/dL (3.2-4.8); Alkaline Phosphatase 93 U/L (46-116); Anion Gap 5 (5-15); Aspartate Aminotransferase 22 U/L (13-40); BUN/Creatinine Ratio 32.1 (10.0-20.0); Blood Urea Nitrogen 17 mg/dL (9-23); Calcium 8.3 mg/dL (8.7-10.4); Carbon Dioxide 27 mmol/L (20-30); Chloride 103 mmol/L (98-107); Glucose 108 mg/dL (74-106); Potassium 4.2 mmol/L (3.5-5.1); Sodium 135 mmol/L (136-145)
[2023-10-01 05:07] LABS: Bilirubin, Total 0.3 mg/dL (0.2-1.0); Total Protein 5.4 g/dL (5.7-8.2)
[2023-10-01] MEDS: TPN PER PHARMACY IV NR (20:02)
[2023-10-02] VITALS (22 sets, daily range): BP systolic 106–154; BP diastolic 61–72; PULSE 71–107; RESP 10–25; TEMP 97.6–98.4; O2SAT 92–100
[2023-10-02 05:41] LABS: Alanine Aminotransferase 28 U/L (7-40); Alkaline Phosphatase 97 U/L (46-116); Anion Gap 5 (5-15); Aspartate Aminotransferase 23 U/L (13-40); BUN/Creatinine Ratio 33.3 (10.0-20.0); Blood Urea Nitrogen 20 mg/dL (9-23); Calcium 8.7 mg/dL (8.7-10.4); Carbon Dioxide 26 mmol/L (20-30); Chloride 103 mmol/L (98-107); Glucose 106 mg/dL (74-106); Magnesium 2.2 mg/dL (1.6-2.6); Potassium 4.4 mmol/L (3.5-5.1); Sodium 134 mmol/L (136-145)
[2023-10-02 05:42] LABS: Bilirubin, Total 0.3 mg/dL (0.2-1.0); Phosphorus 3.9 mg/dL (2.4-5.1); Total Protein 5.7 g/dL (5.7-8.2)
[2023-10-03] VITALS (22 sets, daily range): BP systolic 117–135; BP diastolic 66–72; PULSE 67–108; RESP 14–18; TEMP 97.5–98.4; O2SAT 90–100
[2023-10-03] MEDS: HYDROcodone-ACET 5/325MG TAB PO PRN (10:23)
[2023-10-04] VITALS (10 sets, daily range): BP systolic 127–134; BP diastolic 63–79; PULSE 74–118; RESP 16–20; TEMP 97.7–97.9; O2SAT 94–100
[2023-10-04] MEDS: LORazepam 2MG/ML-1ML VIAL IV PRN (06:34)
[2023-10-04] MEDS ORDERED: METR-344 PO (16:40)
[2023-10-04] MEDS ORDERED: ALPR0.25 PO (17:21)
[2023-10-04] MEDS ORDERED: ALBUAER3 IN (17:21)
== END 2023-10-04 19:01 | disposition home health service (06) | DRG 870 ==
LOC: EDBD 17:45 → ER 17:45 → TELE-EAST 22:33 → TELE 22:33 → TELE-EAST 23:50 → ICU WEST 09-20 09:40 → DOU IN ICU 09-28 21:10 → WEST WING 10-02 17:15 → TELE-WESTW 10-03 02:40
PROVIDERS: ADMIT Internal Medicine; ATTEND Internal Medicine
PROC: 0W9930Z Drainage of Right Pleural Cavity with Drainage Device, Percutaneous Approach (ICD-10-PCS; 2023-09-19)
PROC: 0BH17EZ Insertion of Endotracheal Airway into Trachea, Via Natural or Artificial Opening (ICD-10-PCS; 2023-09-20)
PROC: 5A1955Z Respiratory Ventilation, Greater than 96 Consecutive Hours (ICD-10-PCS; 2023-09-20)
PROC: 0B958ZZ Drainage of Right Middle Lobe Bronchus, Via Natural or Artificial Opening Endoscopic (ICD-10-PCS; 2023-09-20)
PROC: 0W9900Z Drainage of Right Pleural Cavity with Drainage Device, Open Approach (ICD-10-PCS; 2023-09-20)
PROC: 0B9L8ZZ Drainage of Left Lung, Via Natural or Artificial Opening Endoscopic (ICD-10-PCS; 2023-09-26)
PROC: 05HC33Z Insertion of Infusion Device into Left Basilic Vein, Percutaneous Approach (ICD-10-PCS; 2023-09-29)
PROC: B54NZZA Ultrasonography of Left Upper Extremity Veins, Guidance (ICD-10-PCS; 2023-09-29)
PROC: 05HB33Z Insertion of Infusion Device into Right Basilic Vein, Percutaneous Approach (ICD-10-PCS; principal; 2023-10-02)
PROC: B54MZZA Ultrasonography of Right Upper Extremity Veins, Guidance (ICD-10-PCS; 2023-10-02)
DX: A41.89 Other specified sepsis (principal); J18.9 Pneumonia, unspecified organism; J96.01 Acute respiratory failure with hypoxia; N17.0 Acute kidney failure with tubular necrosis; J85.0 Gangrene and necrosis of lung; I31.39 Other pericardial effusion (noninflammatory); J90 Pleural effusion, not elsewhere classified; J98.11 Atelectasis; Z20.822 Contact with and (suspected) exposure to COVID-19; I12.9 Hypertensive chronic kidney disease with stage 1 through stage 4 chronic kidney disease, or unspecified chronic kidney disease; N18.9 Chronic kidney disease, unspecified; E87.6 Hypokalemia; J40 Bronchitis, not specified as acute or chronic; E03.9 Hypothyroidism, unspecified; Z88.0 Allergy status to penicillin; Y93.89 Activity, other specified; Y92.89 Other specified places as the place of occurrence of the external cause; Y99.8 Other external cause status
CPT/HCPCS: 31624; 31625; 36415; 36600; 70450; 71045; 71250; 71260; 76604; 76775; 80048; 80053; 81001; 82805; 82962; 83605; 83735; 83880; 83986; 84100; 84478; 84484; 85007; 85025; 85027; 85610; 85730; 86850; 86900; 86901; 87040; 87070; 87077; 87081; 87186; 87205; 87426; 87804; 89051; 92507; 92610; 93005; 93306; 93971; 94002; 94003; 94640; 94667; 94668; 97110; 97116; 97163; 97530; 99291; C9113; G0378; J0171; J0330; J1100; J1756; J1815; J1956; J2250; J2405; J3480; J3490; J7042; J7060; J7131; P9047

== ENCOUNTER 2024-01-26 07:40 | Emergency (ER) | payer OTHER ==
[~2024-01-26] VITALS: Ht 162.6 cm; Wt 56.0 kg
[~2024-01-26 07:40] MED LIST: ALBUAER3 IN; ALPR0.25 PO; METR-344 PO; PROP60CA34 PO; THYR30TA PO
[2024-01-26 08:23] VITALS: TEMP 97.6
[2024-01-26 08:30] LABS: Urine Bacteria None Seen /hpf (None Seen); Urine WBC None Seen /hpf (0 - 5)
[2024-01-26 08:33] LABS: Basophils # (auto) 0 10 ^3/uL (0-0.2); Basophils % (auto) 0.8 % (0.0-2.0); Eosinophils # (auto) 0 10 ^3/uL (0-0.8); Eosinophils % (auto) 0.8 % (0.0-7.0); Hematocrit 37.2 % (36.0-46.0); Hemoglobin 12.1 g/dL (12.2-16.2); Lymphocytes # (auto) 0.6 10 ^3/uL (0.4-5.4); Lymphocytes % (auto) 12.8 % (10.0-50.0); Mean Corpuscular Hemoglobin 28.5 pg (28.0-32.0); Mean Corpuscular Hgb Conc. 32.5 g/dL (32.0-36.0); Mean Corpuscular Volume 87.6 fL (80.0-100.0); Monocytes # (auto) 0.8 10 ^3/uL (0-1.3); Monocytes % (auto) 16.1 % (0.0-12.0); Neutrophils # (auto) 3.4 10 ^3/uL (1.6-8.6); Neutrophils % (auto) 69.5 % (37.0-80.0); Red Blood Cells 4.25 10^6/uL (4.0-5.20); Red Cell Distribution Width 14.1 % (11.8-14.3); White Blood Cell 4.8 10^3/uL (4.4-10.8)
[2024-01-26 08:37] LABS: Urine Blood Negative /uL (Negative); Urine Clarity Clear (Clear); Urine Color Yellow (Yellow); Urine Protein, UAD Negative (Negative); Urine Specific Gravity 1.013 (1.001-1.035); Urine Urobilinogen Normal (Negative); Urine pH 6.5 (5.0-9.0)
[2024-01-26] MEDS: SODIUM CHLORIDE 0.9% 1,000 ML IVB ONE (08:44)
[2024-01-26 08:51] LABS: Alanine Aminotransferase 20 U/L (7-40); Albumin 4.2 g/dL (3.2-4.8); Alkaline Phosphatase 73 U/L (46-116); Anion Gap 4 (5-15); Aspartate Aminotransferase 14 U/L (13-40); BUN/Creatinine Ratio 19.8 (10.0-20.0); Bilirubin, Total 0.4 mg/dL (0.2-1.0); Blood Urea Nitrogen 20 mg/dL (9-23); Calcium 9.6 mg/dL (8.7-10.4); Carbon Dioxide 30 mmol/L (20-30); Chloride 105 mmol/L (98-107); Glucose 104 mg/dL (74-106); Potassium 3.7 mmol/L (3.5-5.1); Sodium 139 mmol/L (136-145); Total Protein 5.8 g/dL (5.7-8.2)
[2024-01-26] MEDS: IPRATROPIUM BROM 0.5 MG/2.5ML INH SOL HHN ONE (09:25)
[2024-01-26] MEDS: ALBUTEROL SULF 2.5 MG/0.5ML(0.5%) NEB SOLN HHN ONE (09:25)
[2024-01-26] MEDS: SODIUM CHLORIDE 0.9% 1,000 ML IV ONE (09:42)
[2024-01-26] MEDS: cefTRIAXone 1GM/50ML D5W 50 ML IV ONE (09:49)
[2024-01-26 10:30] VITALS: PULSE 75; RESP 11; O2SAT 98
[2024-01-26] MEDS: levoFLOXacin 500MG 100 ML IV ONE (10:50)
[2024-01-26] MEDS ORDERED: LEVO500T91 PO (11:17)
[2024-01-26] MEDS ORDERED: PHEN1LIQ50 PO (11:17)
[2024-01-26 11:51] VITALS: BP 138/74; PULSE 82; RESP 13; O2SAT 98
== END 2024-01-26 11:54 | disposition home or self-care (01) ==
LOC: ER 07:40
DX: J45.901 Unspecified asthma with (acute) exacerbation (principal); Z98.890 Other specified postprocedural states; Z79.899 Other long term (current) drug therapy
CPT/HCPCS: 36415; 71046; 80053; 81001; 83735; 84443; 84484; 85025; 93005; 94640; 96361; 96365; 96367; 99285; J0696; J1956; J7030